=== PATIENT | female | born 1965 | race Hispanic/Latino ===

== ENCOUNTER 2018-08-19 10:20 | Observation (INO) | payer BC ==
--- NOTE | 2018-08-19 11:42 | ED PDOC ---
HPI: Chest Pain Time Seen by Provider: 08/19/18 10:40 Chief Complaint (Nursing): Chest Pain Chief Complaint (Provider): Chest Pain History Per: Patient History/Exam Limitations: no limitations Onset/Duration Of Symptoms: Other (sudden onset today; intermittent for 1 year) Current Symptoms Are (Timing): Still Present Additional Complaint(s): 53 year old female presenting with family for evaluation of an episode of chest pain just prior to arrival. Patient states she was with her family when she began to have an episode of chest pain. Patient reports this episode was witnessed by a master police detective who advised she present to the ED for evaluation. Patient states she has had similar pain intermittently for the past year. Patient reports being evaluated by her PMD for this pain and was told it was reflux. Patient denies ever having a cardiac workup for this pain. Patient states the pain is exacerbated depending on what she eats and states she has been trying to only eat foods which don't exacerbate her symptoms, such as bread. Patient further states her pain is often alleviated by lying down. Patient reports she's had recent episodes of the pain 3 days ago and yesterday at work. Patient states her chest pain has decreased in intensity since onset. Patient is also complaining of some nausea. Patient otherwise denies any fevers, chills, cough, vomiting, diarrhea, abdominal pain, shortness of breath, headache, leg pain, or arm pain. PMD: Non-[facility] Provider Past Medical History Reviewed: Historical Data, Nursing Documentation, Vital Signs Vital Signs: Last Vital Signs Temp 98.2 F 08/19/18 10:32 Pulse 66 08/19/18 10:32 Resp 18 08/19/18 10:32 BP 141/85 08/19/18 10:32 Pulse Ox 97 08/19/18 10:32 - Medical History PMH: Bronchitis, Diabetes (type I) - Surgical History Surgical History: Cholecystectomy, (x2) - Family History Family History: States: Unknown Family Hx - Social History Current smoker - smoking cessation education provided: No Alcohol: None Drugs: Denies - Home Medications Home Medications: Ambulatory Orders Medication Instructions Recorded Calcium Carbonate [Calcium] 1 tab PO DAILY 08/19/18 Escitalopram [Lexapro] 10 mg PO DAILY 08/19/18 Fluticasone Nasal [Flonase] 2 spray ERICH DAILY 08/19/18 Insulin Lispro [humALOG] 33.35 unit SC ASDIR 08/19/18 Lactobacillus Combination No.8 1 cap PO DAILY 08/19/18 [Adult Probiotic] Lansoprazole [Prevacid] 30 mg PO BID 08/19/18 Loratadine [Claritin] 10 mg PO DAILY 08/19/18 Simvastatin [Zocor] 20 mg PO HS 08/19/18 Zolpidem Tartrate [Ambien Cr] 12.5 mg PO HS 08/19/18 valACYclovir [Valtrex] 500 mg PO DAILY 08/19/18 - Allergies Allergies/Adverse Reactions: Allergies Allergy/AdvReac Type Severity Reaction Status Date / Time amoxicillin [From Augmentin] Allergy RASH Verified 08/19/18 11:29 clavulanic acid Allergy RASH Verified 08/19/18 11:29 [From Augmentin] sulfamethoxazole Allergy RASH Verified 08/19/18 11:29 [From Bactrim] trimethoprim [From Bactrim] Allergy RASH Verified 08/19/18 11:29 moxifloxacin [From Avelox] AdvReac joint pain Verified 08/19/18 11:31 Review of Systems ROS Statement: Except As Marked, All Systems Reviewed And Found Negative Constitutional: Negative for: Fever, Chills Cardiovascular: Positive for: Chest Pain Respiratory: Negative for: Cough, Shortness of Breath Gastrointestinal: Negative for: Nausea, Vomiting, Abdominal Pain, Diarrhea Genitourinary Female: Negative for: Dysuria, Frequency, Incontinence Musculoskeletal: Negative for: Arm Pain, Leg Pain Neurological: Negative for: Headache, Dizziness Physical Exam - Reviewed Nursing Documentation Reviewed: Yes Vital Signs Reviewed: Yes - Physical Exam Appears: Positive for: Non-toxic, No Acute Distress Head Exam: Positive for: ATRAUMATIC, NORMAL INSPECTION, NORMOCEPHALIC Skin: Positive for: Normal Color, Warm, Dry. Negative for: Rash Eye Exam: Positive for: EOMI, Normal appearance, PERRL ENT: Positive for: Normal ENT Inspection Neck: Positive for: Normal, Painless ROM, Supple Cardiovascular/Chest: Positive for: Regular Rate, Rhythm, Chest Non Tender. Negative for: Murmur Respiratory: Positive for: Normal Breath Sounds. Negative for: Respiratory Distress Gastrointestinal/Abdominal: Positive for: Normal Exam, Soft. Negative for: Tenderness Back: Positive for: Normal Inspection. Negative for: L CVA Tenderness, R CVA Tenderness, Vertebral Tenderness Extremity: Positive for: Normal ROM. Negative for: Pedal Edema, Deformity Neurologic/Psych: Positive for: Alert, Oriented (x3). Negative for: Motor/Sensory Deficits - Laboratory Results Result Diagrams: 08/19/18 11:45 08/19/18 11:45 - ECG ECG: Positive for: Interpreted By Me, Viewed By Me Interpretation Of ECG: NSR at 72 BPM, left axis deviation, no ST elevations O2 Sat by Pulse Oximetry: 97 (RA) Pulse Ox Interpretation: Normal Medical Decision Making Medical Decision Making: Plan: -CMP -Troponin I -CBC -CXR -Pepcid 20mg IVP -Toradol 30mg IV -Reevaluation 1232: CXR FINDINGS: LUNGS: No active pulmonary disease. PLEURA: No significant pleural effusion identified. No pneumothorax apparent. CARDIOVASCULAR: There is absence of aortic atherosclerotic calcification on x-ray. Normal heart size. No pulmonary vascular congestion. OSSEOUS STRUCTURES: Thoracic spondylosis. Generalized osteopenia VISUALIZED UPPER ABDOMEN: Surgical clips in the upper abdomen. Correlate clinically OTHER FINDINGS: None. IMPRESSION: No acute cardiopulmonary pathology noted. Other findings as above. Labs reviewed. Sugar slightly elevated. Troponin and remainder of labs WNL. Findings discussed with patient. Patient notified that labs and CXR are normal, however, patient is still complaining of left sided chest pain. Patient will be admitted to medical service. ASA and nitro ordered. 0254: Case discussed with Dr. Davidson, patient to be admitted under his service. 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 Scribe Attestation: Documented by Michael Virk, acting as a scribe for Sweetie Lozano MD. Provider Scribe Attestation: All medical record entries made by the Scribe were at my direction and personally dictated by me. I have reviewed the chart and agree that the record accurately reflects my personal performance of the history, physical exam, medical decision making, and the department course for this patient. I have also personally directed, reviewed, and agree with the discharge instructions and disposition. Disposition - Clinical Impression Clinical Impression: Chest pain - Patient ED Disposition Is Patient to be Admitted: Yes Counseled Patient/Family Regarding: Studies Performed, Diagnosis - Disposition Disposition Time: 14:00 Condition: STABLE
[2018-08-19 12:13] LABS: BASO % 0.4 % (0.0-2.0); EOS % 0.3 % (0.0-4.0); HEMOGLOBIN 14.2 g/dL (12.0-16.0); LYMPH # 1.1 K/uL (1.0-4.3); LYMPH % 15.6 % (20.0-40.0); MEAN CELL VOLUME 88.6 fl (81.0-99.0); MEAN CORPUSCULAR HEMOGLOBIN 28.7 pg (27.0-31.0); MEAN CORPUSCULAR HGB CONC 32.4 g/dL (33.0-37.0); MEAN PLATELET VOLUME 9.1 fl (7.2-11.7); MONO # 0.4 K/uL (0.0-0.8); MONO % 5.9 % (0.0-10.0); NEUT # 5.4 K/uL (1.8-7.0); NEUT % 77.8 % (50.0-75.0); NRBC % 0.1 % (0.0-0.0); RBC 4.94 Mil/uL (3.80-5.20); RED CELL DISTRIBUTION WIDTH 13.4 % (11.5-14.5); WHITE BLOOD COUNT 6.9 K/uL (4.8-10.8)
[2018-08-19 12:29] LABS: ALB/GLOB RATIO 1.4 (1.0-2.1); ALBUMIN 4.3 g/dL (3.5-5.0); ALT/SGPT 34 U/L (9-52); AST/SGOT 29 U/L (14-36); BLOOD UREA NITROGEN 7 mg/dl (7-17); CALCIUM 9.6 mg/dL (8.4-10.2); GFR NON-AFRICAN AMERICAN > 60
--- NOTE | 2018-08-19 12:35 | RAD ---
Date of service: 08/19/2018 HISTORY: cp COMPARISON: No prior. TECHNIQUE: Chest PA and lateral FINDINGS: LUNGS: No active pulmonary disease. PLEURA: No significant pleural effusion identified. No pneumothorax apparent. CARDIOVASCULAR: There is absence of aortic atherosclerotic calcification on x-ray. Normal heart size. No pulmonary vascular congestion. OSSEOUS STRUCTURES: Thoracic spondylosis. Generalized osteopenia VISUALIZED UPPER ABDOMEN: Surgical clips in the upper abdomen. Correlate clinically OTHER FINDINGS: None. IMPRESSION: No acute cardiopulmonary pathology noted. Other findings as above.
[2018-08-19] MEDS ORDERED: INSULIN LISPRO SC PRN (17:00)
[2018-08-19] MEDS ORDERED: Dextrose 50% SYRINGE Inj (50 ml) IV PRN (17:12)
[2018-08-19] MEDS ORDERED: Glucagon Recombinant 1 mg Inj IM PRN (17:12)
[2018-08-20 04:42] VITALS: O2SAT 98
[2018-08-20 06:24] LABS: HEMOGLOBIN 13.2 g/dL (12.0-16.0); MEAN CELL VOLUME 87.2 fl (81.0-99.0); MEAN CORPUSCULAR HEMOGLOBIN 28.7 pg (27.0-31.0); MEAN CORPUSCULAR HGB CONC 32.9 g/dL (33.0-37.0); RBC 4.6 Mil/uL (3.80-5.20); RED CELL DISTRIBUTION WIDTH 13.1 % (11.5-14.5); WHITE BLOOD COUNT 4.9 K/uL (4.8-10.8)
[2018-08-20 06:46] LABS: ALB/GLOB RATIO 1.3 (1.0-2.1); ALBUMIN 3.8 g/dL (3.5-5.0); ALT/SGPT 30 U/L (9-52); AST/SGOT 22 U/L (14-36); BLOOD UREA NITROGEN 10 mg/dl (7-17); CALCIUM 9.1 mg/dL (8.4-10.2); GFR NON-AFRICAN AMERICAN > 60
[2018-08-20 08:24] VITALS: BP 126/76; PULSE 72; RESP 18; TEMP 98.2
[2018-08-20] MEDS ORDERED: Enoxaparin 30 mg Syringe SC SCH (09:00)
[2018-08-20] MEDS ORDERED: Famotidine 40 MG/5 ML PO SCH (09:00)
[2018-08-20] MEDS ORDERED: Pantoprazole 40 mg EC Tab PO SCH ×2 (11:30→21:00)
--- NOTE | 2018-08-20 11:56 | CP.PCM.HP ---
<Pavan Galvin - Last Filed: 08/20/18 11:56> History of Present Illness - History of Present Illness History of Present Illness: HPI: Pt is a 53 y/o female with IDDM (insulin pump), HLD, depression, Anxiety, and GERD/Gastritis, presenting with acute onset Epigastric/Chest pain that occurred while sitting in the car of a parking lot. States that for the past several years (becoming more frequent since january 2018), she has been getting this pain and has been told by clinicians in the past that it is "GI related". She describes the pain as sharp, non radiating, exacerbated by most food, unrelated to exertion, and not associated with dyspnea, diaphoresis or lightheadedness. States that when this pain is toby on, she presses on it causing her to belch which often relieves it. Also limits her diet to certain foods. Reports good exercise tolerance. had stress test several years ago that was normal (before this pain started) Denies LE edema, cough, fever/chills, heavy lifting, recent t ravel or prolonged immobility, n/v/diarrhea, or constipation. PMD: Dr. Twila Balbuena ([place]) PMHX: IDDM (insulin pump), HLD, depression, Anxiety, and GERD/Gastritis. PSurHx:2 C sections, Cholecystectomy, Hysterectomy FM Hx: Mother dementia Social: Former smoker, tomasa 20years ago (20 pack year), Drinks alcohol socially, denies illicit drug use Present on Admission - Present on Admission Any Indicators Present on Admission: No Past Patient History - Past Medical History & Family History Past Medical History?: Yes - Past Social History Smoking Status: Never Smoked - CARDIAC Hx Cardiac Disorders: No - PULMONARY Hx Respiratory Disorders: Yes Hx Bronchitis: Yes - NEUROLOGICAL Hx Neurological Disorder: No - HEENT Hx HEENT Problems: No - RENAL Hx Chronic Kidney Disease: No - ENDOCRINE/METABOLIC Hx Endocrine Disorders: Yes (DM, GERD) Hx Diabetes Mellitus Type 1: Yes - HEMATOLOGICAL/ONCOLOGICAL Hx AIDS: No Hx Human Immunodeficiency Virus (HIV): No - INTEGUMENTARY Hx Dermatological Problems: No - MUSCULOSKELETAL/RHEUMATOLOGICAL Hx Falls: No - GASTROINTESTINAL Hx Gastrointestinal Disorders: Yes Hx Gastroesophageal Reflux: Yes - GENITOURINARY/GYNECOLOGICAL Hx Genitourinary Disorders: No - PSYCHIATRIC Hx Psychophysiologic Disorder: No Hx Substance Use: No - SURGICAL HISTORY Hx Surgeries: Yes Hx Section: Yes Hx Cholecystectomy: Yes - ANESTHESIA Hx Anesthesia: Yes Hx Anesthesia Reactions: No Hx Malignant Hyperthermia: No Meds Allergies/Adverse Reactions: Allergies Allergy/AdvReac Type Severity Reaction Status Date / Time amoxicillin [From Augmentin] Allergy RASH Verified 08/19/18 11:29 clavulanic acid Allergy RASH Verified 08/19/18 11:29 [From Augmentin] sulfamethoxazole Allergy RASH Verified 08/19/18 11:29 [From Bactrim] trimethoprim [From Bactrim] Allergy RASH Verified 08/19/18 11:29 moxifloxacin [From Avelox] AdvReac joint pain Verified 08/19/18 11:31 Physical Exam - Constitutional Appears: No Acute Distress - Head Exam Head Exam: NORMAL INSPECTION - Eye Exam Eye Exam: Normal appearance - ENT Exam ENT Exam: Mucous Membranes Moist - Respiratory Exam Respiratory Exam: Clear to Auscultation Bilateral. absent: Rales, Wheezes - Cardiovascular Exam Cardiovascular Exam: REGULAR RHYTHM, +S1, +S2. absent: Tachycardia, Clicks, Gallop, Irregular Rhythm, Systolic Murmur Additional comments: Mild substernal tenderness to palpation - GI/Abdominal Exam GI & Abdominal Exam: Normal Bowel Sounds, Soft. absent: Tenderness - Extremities Exam Extremities exam: Negative for: pedal edema - Back Exam Back exam: NORMAL INSPECTION - Neurological Exam Neurological exam: Alert, Oriented x3 - Psychiatric Exam Psychiatric exam: Normal Affect - Skin Skin Exam: Dry, Normal Color Results - Vital Signs Recent Vital Signs: Last Vital Signs Temp 98.2 F 08/20/18 08:24 Pulse 72 08/20/18 08:24 Resp 18 08/20/18 08:24 BP 126/76 08/20/18 08:24 Pulse Ox 98 08/20/18 08:24 - Labs Result Diagrams: 08/20/18 04:35 08/20/18 04:35 Labs: Laboratory Results - last 24 hr 08/19/18 08/19/18 08/19/18 11:45 11:45 17:24 WBC 6.9 RBC 4.94 Hgb 14.2 Hct 43.8 MCV 88.6 MCH 28.7 MCHC 32.4 L RDW 13.4 Plt Count 224 MPV 9.1 Neut % (Auto) 77.8 H Lymph % (Auto) 15.6 L [place] % (Auto) 5.9 Eos % (Auto) 0.3 Baso % (Auto) 0.4 Neut # (Auto) 5.4 Lymph # (Auto) 1.1 [place] # (Auto) 0.4 Eos # (Auto) 0.0 Baso # (Auto) 0.0 Sodium 143 Potassium 4.2 Chloride 105 Carbon Dioxide 30 Anion Gap 12 BUN 7 Creatinine 0.5 L Est GFR ( Amer) > 60 Est GFR (Non-Af Amer) > 60 POC Glucose (mg/dL) 120 H Random Glucose 160 H Calcium 9.6 Total Bilirubin 0.5 AST 29 ALT 34 Alkaline Phosphatase 81 Troponin I < 0.0120 Total Protein 7.4 Albumin 4.3 Globulin 3.1 Albumin/Globulin Ratio 1.4 08/19/18 08/19/18 08/20/18 20:51 21:33 04:15 WBC RBC Hgb Hct MCV MCH MCHC RDW Plt Count MPV Neut % (Auto) Lymph % (Auto) [place] % (Auto) Eos % (Auto) Baso % (Auto) Neut # (Auto) Lymph # (Auto) [place] # (Auto) Eos # (Auto) Baso # (Auto) Sodium Potassium Chloride Carbon Dioxide Anion Gap BUN Creatinine Est GFR ( Amer) Est GFR (Non-Af Amer) POC Glucose (mg/dL) 97 135 H Random Glucose Calcium Total Bilirubin AST ALT Alkaline Phosphatase Troponin I < 0.0120 Total Protein Albumin Globulin Albumin/Globulin Ratio 08/20/18 08/20/18 08/20/18 04:35 04:35 04:35 WBC 4.9 RBC 4.60 Hgb 13.2 Hct 40.2 MCV 87.2 MCH 28.7 MCHC 32.9 L RDW 13.1 Plt Count 183 MPV Neut % (Auto) Lymph % (Auto) [place] % (Auto) Eos % (Auto) Baso % (Auto) Neut # (Auto) Lymph # (Auto) [place] # (Auto) Eos # (Auto) Baso # (Auto) Sodium 141 Potassium 3.4 L Chloride 102 Carbon Dioxide 29 Anion Gap 13 BUN 10 Creatinine 0.6 L Est GFR ( Amer) > 60 Est GFR (Non-Af Amer) > 60 POC Glucose (mg/dL) Random Glucose 132 H Calcium 9.1 Total Bilirubin 0.5 AST 22 ALT 30 Alkaline Phosphatase 58 Troponin I < 0.0120 Total Protein 6.6 Albumin 3.8 Globulin 2.8 Albumin/Globulin Ratio 1.3 Assessment & Plan - Assessment and Plan (Free Text) Assessment: Pt is a 53 y/o female with IDDM (insulin pump), HLD, depression, Anxiety, and GERD/Gastritis, presenting with acute onset Epigastric/Chest pain that occurred while sitting in the car of a parking lot. Chest pain, atypical -May be GI related given association with certain foods -Given risk factors, may benefit from stress test -EKG no acute ischemic changes, Serial troponins negative -Cxray no acute pathology, no cardiomegaly -S/P ASA 325mg and nitroglycerin in ED -Cardiology consulted -C/W Pepcid and Bentyl IDDM -Continue with Insulin Pump -Hypoglycemic protocol -Accucheck ACHS D/W Dr. Davidson <Oniel Davidson - Last Filed: 08/21/18 10:01> Results - Vital Signs Recent Vital Signs: Last Vital Signs Temp 98.2 F 08/20/18 08:24 Pulse 72 08/20/18 08:24 Resp 18 08/20/18 08:24 BP 126/76 08/20/18 08:24 Pulse Ox 98 08/20/18 08:24 - Labs Result Diagrams: 08/20/18 04:35 08/20/18 04:35 Labs: Laboratory Results - last 24 hr 08/20/18 11:14 POC Glucose (mg/dL) 178 H Assessment & Plan - Assessment and Plan (Free Text) Assessment: Patient was personally seen and examined by me in rounds with residents. Available labs and diagnostic data reviewed. Case, Patient's condition and management plan discussed with residents in rounds. Agree with resident's progress note. Plan: As ordered.
--- NOTE | 2018-08-20 12:47 | CP.PCM.CON ---
History of Present Illness - History of Present Illness History of Present Illness: 53 yo female with epigastric/lower chest pain x 6 months. pt on toast and mashed potato diet due to pain with meals for 2 months. started on lansoprazol 5 months ago with improvement but not resolution of pain. pt denies n/v/d/c, m debra, hematochezia, brbpr. positive weight loss due to limited diet. cp doesnt radiate, no sob, palp, lh, syncope. not hx of cad or cardiac issues. Review of Systems - Constitutional Constitutional: As Per HPI, Weight Loss. absent: Anorexia, Chills, Daytime Sleepiness, Excessive Sweating, Fatigue, Fever, Frequent Falls, Headache, Increased Appetite, Lethargy, Malaise, Night Sweats, Snoring, Sleep Apnea, Weight Gain, Weakness, Other - EENT Eyes: As Per HPI. absent: Blind Spots, Blurred Vision, Change in Vision, Decreased Night Vision, Diplopia, Discharge, Dry Eye, Exophthalmos, Floaters, Irritation, Itchy Eyes, Loss of Peripheral Vision, Pain, Photophobia, Requires Corrective Lenses, Sees Flashes, Spots in Vision, Tunnel Vision, Other Visual Disturbances, Loss of Vision, Other Ears: As Per HPI. absent: Decreased Hearing, Ear Discharge, Ear Pain, Tinnitus, Abnormal Hearing, Disequilibrium, Dizziness, Other Nose/Mouth/Throat: As Per HPI. absent: Epistaxis, Nasal Congestion, Nasal Discharge, Nasal Obstruction, Nasal Trauma, Nose Pain, Post Nasal Drip, Sinus Pain, Sinus Pressure, Bleeding Gums, Change in Voice, Dental Pain, Dry Mouth, Dysphagia, Halitosis, Hoarsness, Lip Swelling, Mouth Lesions, Mouth Pain, Odynophagia, Sore Throat, Throat Swelling, Tongue Swelling, Facial Pain, Neck Pain, Neck Mass, Other - Breasts Breasts: As Per HPI. absent: Change in Shape, Mass, Pain, Nipple Discharge, Nipple Inversion, Skin Changes, Swelling, Other - Cardiovascular Cardiovascular: Chest Pain at Rest. absent: As Per HPI, Acrocyanosis, Chest Pain, Chest Pain with Activity, Claudication, Diaphoresis, Dyspnea, Dyspnea on Exertion, Edema, Irregular Heart Rhythm, Pain Radiating to Arm/Neck/Jaw, Leg Edema, Leg Ulcers, Lightheadedness, Orthopnea, Palpitations, Paroxysmal Nocturnal Dyspnea, Pedal Edema, Radiating Pain, Rapid Heart Rate, Slow Heart Rate, Syncope, Other - Respiratory Respiratory: As Per HPI. absent: Cough, Dyspnea, Hemoptysis, Dyspnea on Exertion, Wheezing, Snoring, Stridor, Pain on Inspiration, Chest Congestion, Excessive Mucous Production, Change in Mucous Color, Pain with Coughing, Other - Gastrointestinal Gastrointestinal: As Per HPI, Abdominal Pain, Belching, Dyspepsia. absent: Bloating, Change in Bowel Habits, Change in Stool Character, Coffee Ground Emesis, Constipation, Cramping, Diarrhea, Dysphagia, Early Satiety, Excessive Flatus, Fecal Incontinence, Heartburn, Hematemesis, Hematochezia, Loose Stools, Melena, Nausea, Odynophagia, Temesmus, Vomiting, Other - Genitourinary Genitourinary: As Per HPI. absent: Change in Urinary Stream, Difficulty Urinating, Dysuria, Flank Pain, Hematuria, Pyuria, Nocturia, Urinary Incontinence, Urinary Frequency, Urinary Hesitance, Urinary Urgency, Voiding F req/Small Amts, Freq UTI, Hx Renal/Bladder Calculi, Hx /Renal Surgery, Bladder Distension, Other - Reproductive: Female Reproductive:Female: As Per HPI. absent: Amenorrhea, Amenorrhea/ Control, Currently Menstual, Cycle <21 Days, Cycle >35 Days, Cycle Variable, Menses 1-7 Days, Menses >/= 8 Days, Menses Variable, Cycle > 4 Weeks Between, No Menses for 6 Months, Heavy Menses, Light Menses, Normal Menses, Spotting Between Cycles, S/P Hysterectomy, Menopausal, Post Menopausal, Premenarche, Abnormal Vaginal Bleeding, Dysmenorrhea, Dyspareunia, Genital Lesions, Genital Pruritis, Pelvic Pain, Prolapse Symptoms, Sexual Dysfunction, Vaginal Discharge, Vaginal Dryness, Vaginal Odor, Vaginal Pruritis, Other - Menstruation Menstruation: As Per HPI. absent: Amenorrhea, Amenorrhea/ Control, Currently Menstual, Cycle <21 Days, Cycle >35 Days, Cycle Variable, Menses 1-7 Days, Menses >/= 8 Days, Menses Variable, Cycle > 4 Weeks Between, No Menses for 6 Months, Heavy Menses, Light Menses, Normal Menses, Spotting Between Cycles, S/P Hysterectomy, Menopausal, Post Menopausal, Premenarche, Abnormal Vaginal Bleeding, Dysmenorrhea, Other - Musculoskeletal Musculoskeletal: As Per HPI. absent: Abnormal Gait, Arthralgias, Atrophy, Back Pain, Deformity, Joint Swelling, Limited Range of Motion, Loss of Height, Muscle Cramps, Muscle Weakness, Myalgias, Neck Pain, Numbness, Radiating Pain into Limb, Stiffness, Tingling, Other - Integumentary Integumentary: As Per HPI. absent: Acne, Alopecia, Bleeding Lesions, Change in Hair, Change in Nails, Change in Pigmentation, Changing Lesions, Dry Skin, Erythema, Furuncle, Hirsutism, Lesions, New Lesions, Non-Healing Lesions, Photosensitivity, Pruritus, Rash, Skin Pain, Skin Ulcer, Sores, Striae, Swelling, Unusual Bruising, Wounds, Jaundice, Other - Neurological Neurological: As Per HPI. absent: Abnormal Gait, Abnormal Hearing, Abnormal Movements, Abnormal Speech, Behavioral Changes, Burning Sensations, Confusion, Convulsions, Disequilibrium, Dizziness, Numbness, Focal Weakness, Frequent Falls, Headaches, Lack of Coordination, Loss of Vision, Memory Loss, Paresthesias, Radicular Pain, Restless Legs, Sensory Deficit, Syncope, Tingling, Tremor, Vertigo, Weakness, Other Visual Disturbances, Other - Psychiatric Psychiatric: As Per HPI. absent: Abnormal Sleep Pattern, Anhedonia, Anxiety, Auditory Hallucinations, Behavioral Changes, Change in Appetite, Change in Libido, Confusion, Depression, Difficulty Concentrating, Hallucinations, Homicidal Ideation, Hopelessness, Irritability, Memory Loss, Mood Swings, Panic Attacks, Paranoia, Suicidal Ideation, Visual Hallucinations, Tactile Hallucinations, Other - Endocrine Endocrine: As Per HPI. absent: Change in Body Appearance, Change in Libido, Cold Intolorance, Deepening of Voice, Excessive Sweating, Fatigue, Flushing, Heat Intolorance, Increase in Ring/Shoe/Hat Size, Palpitations, Polydipsia, Polyphagia, Polyuria, Other - Hematologic/Lymphatic Hematologic: As Per HPI. absent: Easy Bleeding, Easy Bruising, Lymphadenopathy, Other Past Patient History - Past Medical History & Family History Past Medical History?: Yes - Past Social History Smoking Status: Never Smoked Chewing Tobacco Use: No Cigar Use: No Alcohol: Occasional Drugs: Denies Home Situation {Lives}: With Family Domestic Violence: Negative - CARDIAC Hx Cardiac Disorders: No - PULMONARY Hx Respiratory Disorders: Yes Hx Bronchitis: Yes - NEUROLOGICAL Hx Neurological Disorder: No - HEENT Hx HEENT Problems: No - RENAL Hx Chronic Kidney Disease: No - ENDOCRINE/METABOLIC Hx Endocrine Disorders: Yes (DM, GERD) Hx Diabetes Mellitus Type 1: Yes - HEMATOLOGICAL/ONCOLOGICAL Hx AIDS: No Hx Human Immunodeficiency Virus (HIV): No - INTEGUMENTARY Hx Dermatological Problems: No - MUSCULOSKELETAL/RHEUMATOLOGICAL Hx Falls: No - GASTROINTESTINAL Hx Gastrointestinal Disorders: Yes Hx Gastroesophageal Reflux: Yes - GENITOURINARY/GYNECOLOGICAL Hx Genitourinary Disorders: No - PSYCHIATRIC Hx Psychophysiologic Disorder: No Hx Substance Use: No - SURGICAL HISTORY Hx Surgeries: Yes Hx Section: Yes Hx Cholecystectomy: Yes - ANESTHESIA Hx Anesthesia: Yes Hx Anesthesia Reactions: No Hx Malignant Hyperthermia: No Meds Allergies/Adverse Reactions: Allergies Allergy/AdvReac Type Severity Reaction Status Date / Time amoxicillin [From Augmentin] Allergy RASH Verified 08/19/18 11:29 clavulanic acid Allergy RASH Verified 08/19/18 11:29 [From Augmentin] sulfamethoxazole Allergy RASH Verified 08/19/18 11:29 [From Bactrim] trimethoprim [From Bactrim] Allergy RASH Verified 08/19/18 11:29 moxifloxacin [From Avelox] AdvReac joint pain Verified 08/19/18 11:31 - Medications Medications: Current Medications Acetaminophen (Tylenol 325mg Tab) 650 mg PO Q6 PRN PRN Reason: Pain, Mild (1-3) Last Admin: 08/20/18 06:39 Dose: 650 mg Aspirin (Aspirin Chewable) 81 mg PO DAILY [facility] Last Admin: 08/20/18 09:03 Dose: 81 mg Atorvastatin Calcium (Lipitor) 10 mg PO DAILY [facility] Last Admin: 08/20/18 09:02 Dose: 10 mg Calcium Carbonate (Oscal) 500 mg PO DAILY [facility] Last Admin: 08/20/18 09:03 Dose: 500 mg Dextrose (Dextrose 50% Inj) 0 ml IV STAT PRN; Protocol PRN Reason: Hypoglycemia Protocol Dextrose (Glutose 15) 0 gm PO ONCE PRN; Protocol PRN Reason: Hypoglycemia Protocol Dicyclomine HCl (Bentyl) 10 mg PO QID [facility] Last Admin: 08/20/18 12:17 Dose: 10 mg Enoxaparin Sodium (Lovenox) 30 mg SC DAILY [facility]; Protocol Last Admin: 08/20/18 09:02 Dose: 30 mg Escitalopram Oxalate (Lexapro) 10 mg PO DAILY [facility] Last Admin: 08/20/18 09:03 Dose: 10 mg Famotidine (Pepcid) 20 mg PO BID [facility] Last Admin: 08/20/18 09:03 Dose: 20 mg Fluticasone Propionate (Flonase) 2 spr ERICH DAILY [facility] Last Admin: 08/20/18 09:07 Dose: Not Given Glucagon (Glucagen Diagnostic Kit) 0 mg IM STAT PRN; Protocol PRN Reason: Hypoglycemia Protocol Home Med (Insulin Lispro [Humalog]) 33.35 unit SC PRN PRN PRN Reason: SEE COMMENTS Ondansetron HCl (Zofran Inj) 4 mg IVP Q6 PRN PRN Reason: Nausea/Vomiting Pantoprazole Sodium (Protonix Ec Tab) 40 mg PO DAILY [facility] Last Admin: 08/20/18 12:17 Dose: 40 mg Zolpidem Tartrate (Ambien) 10 mg PO HS [facility] Last Admin: 08/19/18 23:00 Dose: 10 mg Physical Exam - Constitutional Appears: Well - Head Exam Head Exam: ATRAUMATIC, NORMAL INSPECTION, NORMOCEPHALIC - Eye Exam Eye Exam: EOMI, Normal appearance, PERRL. absent: Conjunctival injection, Nystagmus, Periorbital swelling, Periorbital tenderness, Scleral icterus Pupil Exam: NORMAL ACCOMODATION, PERRL. absent: Fixed, Irregular, Miosis, Mydriatic, Unequal - ENT Exam ENT Exam: Mucous Membranes Moist, Normal Exam. absent: Mucous Membranes Dry, Normal External Ear Exam, Normal Oropharynx, TM's Normal Bilaterally - Neck Exam Neck exam: Positive for: Normal Inspection. Negative for: Full Rom, Lymphadenopathy, Meningismus, Tenderness, Thyromegaly - Respiratory Exam Respiratory Exam: Clear to Auscultation Bilateral, NORMAL BREATHING PATTERN. absent: Accessory Muscle Use, Chest Wall Tenderness, Decreased Breath Sounds, Prolonged Expiratory Phase, Rales, Rhonchi, Wheezes, Respiratory Distress, Stridor - Cardiovascular Exam Cardiovascular Exam: REGULAR RHYTHM, +S1, +S2. absent: Bradycardia, Tachycardia, Clicks, Diastolic murmur, Gallop, Irregular Rhythm, JVD, RRR, Rubs, +S4, Systolic Murmur - GI/Abdominal Exam GI & Abdominal Exam: Normal Bowel Sounds, Soft, Tenderness. absent: Bruit, Diminished Bowel Sounds, Distended, Firm, Guarding, Hernia, Hyperactive Bowel Sounds, Hypoactive Bowel Sounds, Mass, Organomegaly, Pulsatile Mass, Rebound, Rigid - Rectal Exam Rectal Exam: Deferred - Extremities Exam Extremities exam: Positive for: normal inspection. Negative for: calf tenderness, full ROM, joint swelling, normal capillary refill, pedal edema, tenderness, pedal pulses present - Back Exam Back exam: NORMAL INSPECTION. absent: CVA tenderness (L), CVA tenderness (R), FULL ROM, muscle spasm, paraspinal tenderness, rash noted, tenderness, vertebral tenderness - Neurological Exam Neurological exam: Alert, CN II-XII Intact, Normal Gait, Oriented x3, Reflexes Normal - Psychiatric Exam Psychiatric exam: Normal Affect, Normal Mood - Skin Skin Exam: Dry, Intact, Normal Color, Warm Results - Vital Signs Recent Vital Signs: Last Vital Signs Temp 98.2 F 08/20/18 08:24 Pulse 72 08/20/18 08:24 Resp 18 08/20/18 08:24 BP 126/76 08/20/18 08:24 Pulse Ox 98 08/20/18 08:24 - Labs Result Diagrams: 08/20/18 04:35 08/20/18 04:35 Labs: Laboratory Results - last 24 hr 08/19/18 08/19/18 08/19/18 17:24 20:51 21:33 WBC RBC Hgb Hct MCV MCH MCHC RDW Plt Count Sodium Potassium Chloride Carbon Dioxide Anion Gap BUN Creatinine Est GFR ( Amer) Est GFR (Non-Af Amer) POC Glucose (mg/dL) 120 H 97 Random Glucose Calcium Total Bilirubin AST ALT Alkaline Phosphatase Troponin I < 0.0120 Total Protein Albumin Globulin Albumin/Globulin Ratio 08/20/18 08/20/18 08/20/18 04:15 04:35 04:35 WBC 4.9 RBC 4.60 Hgb 13.2 Hct 40.2 MCV 87.2 MCH 28.7 MCHC 32.9 L RDW 13.1 Plt Count 183 Sodium 141 Potassium 3.4 L Chloride 102 Carbon Dioxide 29 Anion Gap 13 BUN 10 Creatinine 0.6 L Est GFR ( Amer) > 60 Est GFR (Non-Af Amer) > 60 POC Glucose (mg/dL) 135 H Random Glucose 132 H Calcium 9.1 Total Bilirubin 0.5 AST 22 ALT 30 Alkaline Phosphatase 58 Troponin I Total Protein 6.6 Albumin 3.8 Globulin 2.8 Albumin/Globulin Ratio 1.3 08/20/18 04:35 WBC RBC Hgb Hct MCV MCH MCHC RDW Plt Count Sodium Potassium Chloride Carbon Dioxide Anion Gap BUN Creatinine Est GFR ( Amer) Est GFR (Non-Af Amer) POC Glucose (mg/dL) Random Glucose Calcium Total Bilirubin AST ALT Alkaline Phosphatase Troponin I < 0.0120 Total Protein Albumin Globulin Albumin/Globulin Ratio - EKG Data EKG Interpreted by: Myself EKG shows normal: Sinus rhythm Assessment & Plan (1) Epigastric pain Status: Acute (2) GERD (gastroesophageal reflux disease) Status: Acute (3) Weight loss Status: Acute (4) Chest pain Status: Resolved - Assessment and Plan (Free Text) Plan: pain is likely due to gastric and esophageal pathology. tele sr. ekg sr. tender over epigastric region. no cardiac risk factors. ppi bid should see out pt gi doc 45 min total care time.
--- NOTE | 2018-08-20 14:15 | CP.PCM.PCO ---
Assessment/Plan - Assessment and Plan (Free Text) Assessment: Patient seen and reevaluated this afternoon. Some stomach burning after lunch today, only able to tolerate a few bites. Patient medicated with protonix (prevacid not on formulary in hospital) Patient does have a GI provider back home, instructed to follow up with MD once she returns back to [place]. Discussed with Resident with Dr Davidson who agrees.
--- NOTE | 2018-08-20 15:45 | CP.PCM.DIS ---
Provider - Provider Date of Admission: 08/19/18 15:00 Attending physician: Oniel Davidson MD Consults: 08/19/18 15:01 Cardiology Consult Stat Comment: Consulting Provider: Adriana Villela Consulting Physician: Adriana Villela Reason for Consult: cp Time Spent in preparation of Discharge (in minutes): 35 Diagnosis - Discharge Diagnosis (1) Chest pain Status: Resolved Hospital Course - Lab Results Lab Results: Most Recent Lab Values WBC 4.9 K/uL (4.8-10.8) 08/20/18 04:35 RBC 4.60 Mil/uL (3.80-5.20) 08/20/18 04:35 Hgb 13.2 g/dL (12.0-16.0) 08/20/18 04:35 Hct 40.2 % (34.0-47.0) 08/20/18 04:35 MCV 87.2 fl (81.0-99.0) 08/20/18 04:35 MCH 28.7 pg (27.0-31.0) 08/20/18 04:35 MCHC 32.9 g/dL (33.0-37.0) L 08/20/18 04:35 RDW 13.1 % (11.5-14.5) 08/20/18 04:35 Plt Count 183 K/uL (130-400) 08/20/18 04:35 MPV 9.1 fl (7.2-11.7) 08/19/18 11:45 Neut % (Auto) 77.8 % (50.0-75.0) H 08/19/18 11:45 Lymph % (Auto) 15.6 % (20.0-40.0) L 08/19/18 11:45 [place] % (Auto) 5.9 % (0.0-10.0) 08/19/18 11:45 Eos % (Auto) 0.3 % (0.0-4.0) 08/19/18 11:45 Baso % (Auto) 0.4 % (0.0-2.0) 08/19/18 11:45 Neut # (Auto) 5.4 K/uL (1.8-7.0) 08/19/18 11:45 Lymph # (Auto) 1.1 K/uL (1.0-4.3) 08/19/18 11:45 [place] # (Auto) 0.4 K/uL (0.0-0.8) 08/19/18 11:45 Eos # (Auto) 0.0 K/uL (0.0-0.7) 08/19/18 11:45 Baso # (Auto) 0.0 K/uL (0.0-0.2) 08/19/18 11:45 Sodium 141 mmol/l (132-148) 08/20/18 04:35 Potassium 3.4 MMOL/L (3.6-5.0) L 08/20/18 04:35 Chloride 102 mmol/L (98-107) 08/20/18 04:35 Carbon Dioxide 29 mmol/L (22-30) 08/20/18 04:35 Anion Gap 13 (10-20) 08/20/18 04:35 BUN 10 mg/dl (7-17) 08/20/18 04:35 Creatinine 0.6 mg/dl (0.7-1.2) L 08/20/18 04:35 Est GFR ( Amer) > 60 08/20/18 04:35 Est GFR (Non-Af Amer) > 60 08/20/18 04:35 POC Glucose (mg/dL) 135 mg/dL (65-110) H 08/20/18 04:15 Random Glucose 132 mg/dL (65-105) H 08/20/18 04:35 Calcium 9.1 mg/dL (8.4-10.2) 08/20/18 04:35 Total Bilirubin 0.5 mg/dl (0.2-1.3) 08/20/18 04:35 AST 22 U/L (14-36) 08/20/18 04:35 ALT 30 U/L (9-52) 08/20/18 04:35 Alkaline Phosphatase 58 U/L (38-126) 08/20/18 04:35 Troponin I < 0.0120 ng/mL (0.00-0.120) 08/20/18 04:35 Total Protein 6.6 G/DL (6.3-8.2) 08/20/18 04:35 Albumin 3.8 g/dL (3.5-5.0) 08/20/18 04:35 Globulin 2.8 gm/dL (2.2-3.9) 08/20/18 04:35 Albumin/Globulin Ratio 1.3 (1.0-2.1) 08/20/18 04:35 - Hospital Course Hospital Course: Pt is a 53 y/o female with IDDM (insulin pump), HLD, depression, Anxiety, and GERD/Gastritis, presenting with acute onset Epigastric/Chest pain that occurred while sitting in the car of a parking lot. Pt EKG completed that showed no acute ischemic changes and serial troponins negative x3. Chest xray reported no acute pathologies. She was evaluated by Bat Lathe Operator who stated the etiology was likely GI. Pt was cleared and stable for discharge home on proton pump inhibitors and advised to f/u with PMD. Discharge Exam - Head Exam Head Exam: NORMAL INSPECTION - Eye Exam Eye Exam: Normal appearance - ENT Exam ENT Exam: Mucous Membranes Moist - Respiratory Exam Respiratory Exam: Clear to PA & Lateral. absent: Rales, Wheezes, Respiratory Distress - Cardiovascular Exam Cardiovascular Exam: REGULAR RHYTHM, +S1, +S2. absent: Systolic Murmur - GI/Abdominal Exam GI & Abdominal Exam: Normal Bowel Sounds, Soft - Extremities Exam Extremities exam: normal inspection - Neurological Exam Neurological exam: Alert, Oriented x3 - Psychiatric Exam Psychiatric exam: Normal Affect - Skin Skin Exam: Normal Color Discharge Plan - Follow Up Plan Condition: STABLE Disposition: HOME/ ROUTINE Instructions: Chest Pain (DC) Additional Instructions: please follow up with pmd in 1 week Referrals: Oniel Davidson MD [Staff Provider] - Adriana Villela MD [Staff Provider] -
== END 2018-08-20 16:10 | disposition home or self-care (01) ==
LOC: H.ER 10:20 → H.ERHOLD 15:00 → H.TEL 21:31
PROVIDERS: ADMIT Internal Medicine; ATTEND Internal Medicine
DX: R07.89 Other chest pain (principal); R10.13 Epigastric pain; K21.9 Gastro-esophageal reflux disease without esophagitis; K29.70 Gastritis, unspecified, without bleeding; E10.9 Type 1 diabetes mellitus without complications; Z96.41 Presence of insulin pump (external) (internal); Z79.4 Long term (current) use of insulin; E78.5 Hyperlipidemia, unspecified; F41.9 Anxiety disorder, unspecified; Z88.0 Allergy status to penicillin; Z88.2 Allergy status to sulfonamides; Z87.891 Personal history of nicotine dependence; Z90.710 Acquired absence of both cervix and uterus; Z90.49 Acquired absence of other specified parts of digestive tract
CPT/HCPCS: 36415; 71046; 80053; 81025; 82948; 84484; 85025; 85027; 96372; 96374; 96375; 99285; G0378; J1650; J1885